=== PATIENT | female | born 1975 | race African-American/Black ===

== ENCOUNTER 2017-01-07 12:47 | Emergency (ER) | payer MEDICAID, OTHER ==
[~2017-01-07] VITALS: Ht 172.7 cm; Wt 54.0 kg
[~2017-01-07 12:47] MED LIST: BIRTH CONTROL
[2017-01-07 13:11] VITALS: BP 127/94
== END 2017-01-07 15:42 | disposition home or self-care (01) ==
LOC: ER 14:37
DX: F41.9 Anxiety disorder, unspecified (principal); I10 Essential (primary) hypertension; F17.200 Nicotine dependence, unspecified, uncomplicated; Z79.899 Other long term (current) drug therapy
CPT/HCPCS: 93005; 99283

== ENCOUNTER 2017-07-12 19:18 | Emergency (ER) | payer MEDICAID, OTHER ==
[~2017-07-12] VITALS: Ht 177.8 cm; Wt 69.0 kg
[2017-07-12 19:34] VITALS: BP 145/93
== END 2017-07-12 22:39 | disposition left against medical advice (07) ==
LOC: ER 20:19
DX: I10 Essential (primary) hypertension (principal); Z53.21 Procedure and treatment not carried out due to patient leaving prior to being seen by health care provider

== ENCOUNTER 2017-07-20 14:52 | Emergency (ER) | payer MEDICAID ==
[~2017-07-20] VITALS: Ht 177.8 cm; Wt 69.0 kg
[2017-07-20] MEDS ORDERED: ANAS1TAB7 PO (15:01)
[2017-07-20] MEDS ORDERED: SODIUM CHLORIDE 0.9% 1,000 ML IV ONE ×2 (19:26→22:30)
[2017-07-20] MEDS ORDERED: LORAZEPAM 1MG TABLET PO ONE (19:30)
[2017-07-20 19:47] LABS: CLARITY URINE CLEAR (CLEAR); COLOR URINE YELLOW (YELLOW); GLUCOSE URINE NEGATIVE (NEGATIVE); KETONES URINE NEGATIVE (NEGATIVE); LEUKOCYTE ESTERASE URINE 2+ (NEGATIVE); NITRITE URINE NEGATIVE (NEGATIVE); OCCULT BLOOD URINE NEGATIVE (NEGATIVE); PROTEIN URINE NEGATIVE (NEGATIVE); SPECIFIC GRAVITY URINE 1.027 (1.005-1.030)
[2017-07-20 19:52] LABS: BASOPHILS % 0.5 % (0.0-2.0); EOSINOPHILS % 1.8 % (0.0-5.0); HEMATOCRIT. 39.7 % (36.0-48.0); HEMOGLOBIN. 13.3 g/dL (12.0-16.0); LYMPHOCYTES % 34.2 % (20.0-50.0); MEAN CORPUSCULAR HEMOGLOBIN 28.3 pg (28.0-32.0); MEAN CORPUSCULAR VOLUME 84.3 fL (81.0-99.0); MEAN PLATELET VOLUME 8.4 fl (7.4-10.4); MONOCYTES % 7.2 % (2.0-8.0); NEUTROPHILS % 56.3 % (40.0-76.0); PLATELET 219 x1000/uL (130-400); RED CELL DISTRIBUTION WIDTH 13.7 % (11.6-14.6)
[2017-07-20 20:04] LABS: CHLORIDE 104 mEq/L (98-107)
[2017-07-20 20:09] LABS: CARBON DIOXIDE 26 mEq/L (21-32)
[2017-07-21 01:08] VITALS: BP 112/85
== END 2017-07-21 01:45 | disposition home or self-care (01) ==
LOC: ER 14:52
DX: F41.9 Anxiety disorder, unspecified (principal); N39.0 Urinary tract infection, site not specified; I10 Essential (primary) hypertension; F17.200 Nicotine dependence, unspecified, uncomplicated
CPT/HCPCS: 36415; 80053; 81001; 81025; 85025; 96360; 96361; 99285; J7030; Z7610

== ENCOUNTER 2018-02-21 01:22 | Emergency (ER) | payer BC, MEDICAID, MEDICARE ==
[~2018-02-21] VITALS: Ht 180.3 cm; Wt 66.0 kg
[~2018-02-21 01:22] MED LIST changes: +ANAS1TAB7 PO
[2018-02-21] MEDS ORDERED: BACITRACIN ZINC OINT UDPKT TOP ONE (04:00)
[2018-02-21] MEDS ORDERED: TETANUS, DIPHTHERIA, PERTUSSIS VAC/PF 0.5ML (>7YR OLD) IM ONE (04:00)
[2018-02-21] MEDS ORDERED: LIDOCAINE HCL 1% 20ML VIAL (Pyxis) INJ MC ONE (04:00)
[2018-02-21] MEDS ORDERED: HYDROCODONE/ACETAMINOPHEN 5/325MG TABLET PO ONE (04:00)
[2018-02-21] MEDS ORDERED: LIDOCAINE HCL 1% 20ML VIAL (Pyxis) INJ INFIL ONE (04:15)
[2018-02-21 06:00] VITALS: BP 115/87
== END 2018-02-21 06:52 | disposition home or self-care (01) ==
LOC: ER 01:22
DX: S01.511A Laceration without foreign body of lip, initial encounter (principal); I10 Essential (primary) hypertension; F17.200 Nicotine dependence, unspecified, uncomplicated; V78.4XXA Person boarding or alighting from bus injured in noncollision transport accident, initial encounter; Y93.89 Activity, other specified; Y92.89 Other specified places as the place of occurrence of the external cause; Y99.8 Other external cause status
CPT/HCPCS: 12011; 90471; 90715; 99283; J3490; X7700; Z7610

== ENCOUNTER 2018-05-02 10:16 | Emergency (ER) | payer SELFPAY ==
[~2018-05-02] VITALS: Ht 180.3 cm; Wt 72.0 kg
[2018-05-02 12:13] VITALS: BP 128/79
[2018-05-02 12:15] LABS: BASOPHILS % 0.8 % (0.0-2.0); EOSINOPHILS % 1.5 % (0.0-5.0); HEMOGLOBIN. 14.1 g/dL (12.0-16.0); LYMPHOCYTES % 36.8 % (20.0-50.0); MEAN CORPUSCULAR HEMOGLOBIN 28.4 pg (28.0-32.0); MEAN CORPUSCULAR VOLUME 84.2 fL (81.0-99.0); MONOCYTES % 8.4 % (2.0-8.0); NEUTROPHILS % 52.5 % (40.0-76.0); PLATELET 236 x1000/uL (130-400); RED BLOOD CELL COUNT 4.98 mill/uL (4.2-5.4); RED CELL DISTRIBUTION WIDTH 14.3 % (11.6-14.6)
[2018-05-02 12:21] LABS: CHLORIDE 107 mEq/L (98-107)
== END 2018-05-02 12:47 | disposition left against medical advice (07) ==
LOC: ER 10:16
DX: R51 Headache (principal); I10 Essential (primary) hypertension; F17.200 Nicotine dependence, unspecified, uncomplicated; Z79.899 Other long term (current) drug therapy; Z91.19 Patient's noncompliance with other medical treatment and regimen
CPT/HCPCS: 36415; 71045; 80053; 81025; 83880; 84484; 85025; 85610; 93005; 99285

== ENCOUNTER 2019-04-05 18:23 | Emergency (ER) | payer MEDICAID ==
[~2019-04-05] VITALS: Ht 180.3 cm; Wt 75.8 kg
[2019-04-05 22:47] VITALS: BP 112/87
== END 2019-04-05 23:09 | disposition left against medical advice (07) ==
LOC: ER 18:23
DX: Z53.21 Procedure and treatment not carried out due to patient leaving prior to being seen by health care provider (principal)

== ENCOUNTER 2019-04-07 10:19 | Emergency (ER) | payer MEDICAID, MEDICARE ==
[~2019-04-07] VITALS: Ht 180.3 cm; Wt 80.0 kg
[2019-04-07] MEDS ORDERED: KETOROLAC 60MG/2ML VIAL IM ONE (11:00)
[2019-04-07 11:07] LABS: CLARITY URINE TURBID (CLEAR); COLOR URINE YELLOW (YELLOW); KETONES URINE NEGATIVE (NEGATIVE); LEUKOCYTE ESTERASE URINE 3+ (NEGATIVE); NITRITE URINE POSITIVE (NEGATIVE); OCCULT BLOOD URINE 2+ (NEGATIVE); PROTEIN URINE 2+ (NEGATIVE); SPECIFIC GRAVITY URINE 1.016 (1.005-1.030)
[2019-04-07 12:09] VITALS: BP 109/75
== END 2019-04-07 12:09 | disposition home or self-care (01) ==
LOC: ER 10:19
DX: N39.0 Urinary tract infection, site not specified (principal)
CPT/HCPCS: 81003; 81025; 87077; 87086; 87186; 96372; 99283; J1885

== ENCOUNTER 2019-05-02 10:51 | Emergency (ER) | payer MEDICARE ==
[~2019-05-02] VITALS: Ht 180.3 cm; Wt 68.0 kg
[2019-05-02] MEDS ORDERED: SODIUM CHLORIDE 0.9% 1,000 ML IV ONE (18:22)
[2019-05-02 18:42] LABS: BASOPHILS % 0.4 % (0.0-2.0); EOSINOPHILS % 1.7 % (0.0-5.0); HEMATOCRIT. 37.6 % (36.0-48.0); HEMOGLOBIN. 13.3 g/dL (12.0-16.0); LYMPHOCYTES % 38.7 % (20.0-50.0); MEAN CORPUSCULAR HEMOGLOBIN 29.5 pg (28.0-32.0); MEAN CORPUSCULAR VOLUME 83.4 fL (81.0-99.0); MEAN PLATELET VOLUME 8.2 fl (7.4-10.4); MONOCYTES % 8.4 % (2.0-8.0); NEUTROPHILS % 50.8 % (40.0-76.0); PLATELET 175 x1000/uL (130-400); RED BLOOD CELL COUNT 4.51 mill/uL (4.2-5.4); RED CELL DISTRIBUTION WIDTH 14.9 % (11.6-14.6)
[2019-05-02 18:48] LABS: CHLORIDE 109 mEq/L (98-107)
[2019-05-02 18:56] LABS: CREATINE KINASE 57 IU/L (26-192)
[2019-05-02 19:47] LABS: CLARITY URINE TURBID (CLEAR); COLOR URINE YELLOW (YELLOW); KETONES URINE TRACE (NEGATIVE); LEUKOCYTE ESTERASE URINE 1+ (NEGATIVE); NITRITE URINE POSITIVE (NEGATIVE); OCCULT BLOOD URINE NEGATIVE (NEGATIVE); PH URINE 6.5 (4.5-8.0); PROTEIN URINE NEGATIVE (NEGATIVE); SPECIFIC GRAVITY URINE 1.024 (1.005-1.030)
[2019-05-02 20:07] LABS: *AMPHETAMINES SCREEN URINE NEGATIVE (NEGATIVE); *BARBITURATES SCREEN URINE NEGATIVE (NEGATIVE); *BENZODIAZEPINES SCREEN URINE NEGATIVE (NEGATIVE); *COCAINE SCREEN URINE NEGATIVE (NEGATIVE); CANNABINOID URINE SCREEN NEGATIVE (NEGATIVE); METHADONE URINE SCREEN NEGATIVE (NEGATIVE); OPIATES URINE SCREEN NEGATIVE (NEGATIVE); PHENCYCLIDINE URINE SCREEN NEGATIVE (NEGATIVE)
[2019-05-02 21:00] VITALS: BP 123/88
== END 2019-05-02 22:37 | disposition home or self-care (01) ==
LOC: ER 10:51
DX: N39.0 Urinary tract infection, site not specified (principal); R03.0 Elevated blood-pressure reading, without diagnosis of hypertension
CPT/HCPCS: 36415; 71045; 80053; 80305; 80307; 80329; 81003; 82550; 83735; 85025; 93005; 99284; J7030

== ENCOUNTER 2020-07-09 23:45 | Emergency (ER) | payer MEDICAID, MEDICARE ==
[~2020-07-09] VITALS: Ht 180.3 cm; Wt 73.0 kg
[2020-07-10] MEDS ORDERED: SODIUM CHLORIDE 0.9% 500 ML IV ONE (00:30)
[2020-07-10 00:52] LABS: BASOPHILS % 0.3 % (0.0-2.0); EOSINOPHILS % 0.9 % (0.0-5.0); HEMATOCRIT. 42.4 % (36.0-48.0); HEMOGLOBIN. 14.3 g/dL (12.0-16.0); LYMPHOCYTES % 26.9 % (20.0-50.0); MEAN CORPUSCULAR HEMOGLOBIN 29.2 pg (28.0-32.0); MEAN CORPUSCULAR VOLUME 86.5 fL (81.0-99.0); MEAN PLATELET VOLUME 8.4 fl (7.4-10.4); MONOCYTES % 6.9 % (2.0-8.0); PLATELET 243 x1000/uL (130-400); RED CELL DISTRIBUTION WIDTH 14.4 % (11.6-14.6)
[2020-07-10 00:55] LABS: CHLORIDE 108 mEq/L (98-107)
[2020-07-10 00:59] LABS: ETHANOL BLOOD 23 mg/dL
[2020-07-10] MEDS ORDERED: LORAZEPAM 0.5MG TABLET PO ONE (01:15)
[2020-07-10 01:30] LABS: HCG SCREEN INDETERMINATE
[2020-07-10 04:58] LABS: CLARITY URINE CLOUDY (CLEAR); COLOR URINE YELLOW (YELLOW); KETONES URINE 1+ (NEGATIVE); LEUKOCYTE ESTERASE URINE TRACE (NEGATIVE); NITRITE URINE NEGATIVE (NEGATIVE); OCCULT BLOOD URINE NEGATIVE (NEGATIVE); PROTEIN URINE NEGATIVE (NEGATIVE); SPECIFIC GRAVITY URINE 1.024 (1.005-1.030)
[2020-07-10 05:09] LABS: *COCAINE SCREEN URINE NEGATIVE (NEGATIVE); METHADONE URINE SCREEN NEGATIVE (NEGATIVE); OPIATES URINE SCREEN NEGATIVE (NEGATIVE); PHENCYCLIDINE URINE SCREEN NEGATIVE (NEGATIVE)
[2020-07-10 05:10] LABS: *AMPHETAMINES SCREEN URINE NEGATIVE (NEGATIVE); *BARBITURATES SCREEN URINE NEGATIVE (NEGATIVE); *BENZODIAZEPINES SCREEN URINE NEGATIVE (NEGATIVE)
[2020-07-10 05:13] LABS: CANNABINOID URINE SCREEN PRESUMTIVE POSITIVE (NEGATIVE)
[2020-07-10 05:49] VITALS: BP 122/80
== END 2020-07-10 05:50 | disposition home or self-care (01) ==
LOC: ER 23:45
DX: F12.188 Cannabis abuse with other cannabis-induced disorder (principal); H53.2 Diplopia; R00.2 Palpitations; R53.1 Weakness; F12.180 Cannabis abuse with cannabis-induced anxiety disorder; I10 Essential (primary) hypertension; F10.10 Alcohol abuse, uncomplicated; Y90.1 Blood alcohol level of 20-39 mg/100 ml; Z32.00 Encounter for pregnancy test, result unknown
CPT/HCPCS: 36415; 71045; 80053; 80305; 80320; 81003; 83880; 84484; 84702; 84703; 85025; 93005; 96360; 99285; J7040; G0480

== ENCOUNTER 2020-10-09 23:20 | Emergency (ER) | payer MEDICAID ==
[~2020-10-09] VITALS: Ht 172.7 cm; Wt 60.0 kg
[2020-10-09 23:25] VITALS: BP 122/64
== END 2020-10-10 00:12 | disposition home or self-care (01) ==
LOC: ER 23:50
DX: F41.9 Anxiety disorder, unspecified (principal); R00.2 Palpitations; I10 Essential (primary) hypertension; Z86.59 Personal history of other mental and behavioral disorders
CPT/HCPCS: 93005; 99283

== ENCOUNTER 2024-06-02 19:21 | Emergency (ER) | payer MEDICAID ==
[~2024-06-02] VITALS: Ht 175.3 cm; Wt 70.0 kg
[2024-06-02 19:35] VITALS: O2SAT 100
[2024-06-02 20:40] LABS: HEMATOCRIT 41.3 % (36.0-48.0); HEMOGLOBIN 13.7 g/dL (12.0-16.0); MEAN CORPUSCULAR HEMOGLOBIN 28.3 pg (28.0-32.0); MEAN CORPUSCULAR HGB CONC 33.2 g/dL (31.0-37.0); MEAN CORPUSCULAR VOLUME 85.1 fL (81.0-99.0); PLATELET 252 x1000/uL (130-400); RED BLOOD CELL COUNT 4.85 mill/uL (4.2-5.4); RED CELL DISTRIBUTION WIDTH 14.5 % (11.6-14.6); WHITE BLOOD COUNT 8.6 x1000/uL (4.5-11.0)
[2024-06-02 20:48] LABS: CHLORIDE 106 mEq/L (98-107); POTASSIUM 3.8 mEq/L (3.5-5.1); SODIUM 136 mEq/L (136-145)
[2024-06-02 20:49] LABS: CALCIUM 9.6 mg/dL (8.7-10.4); CARBON DIOXIDE 24 mEq/L (21-32)
[2024-06-02 20:54] LABS: CREATININE 0.9 mg/dL (0.6-1.0); GLUCOSE 95 mg/dL (70-105); UREA NITROGEN BLOOD 9 mg/dL (9-23)
[2024-06-02 21:12] LABS: HCG SCREEN INDETERMINATE
[2024-06-02 21:39] LABS: ALANINE AMINOTRANSFERASE 14 IU/L (10-49)
[2024-06-02 21:40] LABS: ACETAMINOPHEN < 2 ug/mL (10-30); ALBUMIN 4.7 g/dL (3.2-4.8); ASPARTATE AMINOTRANSFERASE 19 IU/L (<34); BILIRUBIN TOTAL 0.3 mg/dL (0.1-1.0); PROTEIN TOTAL 7.5 g/dL (6.0-8.3)
[2024-06-02 21:47] LABS: BILIRUBIN DIRECT < 0.1 mg/dL (<=3.0); ETHANOL BLOOD < 10 mg/dL (<10)
[2024-06-02 23:43] LABS: *AMPHETAMINES SCREEN URINE NEGATIVE (NEGATIVE); *BARBITURATES SCREEN URINE NEGATIVE (NEGATIVE); *BENZODIAZEPINES SCREEN URINE NEGATIVE (NEGATIVE); *COCAINE SCREEN URINE NEGATIVE (NEGATIVE); CANNABINOID URINE SCREEN NEGATIVE (NEGATIVE); ECSTASY MDMA SCREEN URINE NEGATIVE (NEGATIVE); METHADONE URINE SCREEN NEGATIVE (NEGATIVE); OPIATES URINE SCREEN NEGATIVE (NEGATIVE); PHENCYCLIDINE URINE SCREEN NEGATIVE (NEGATIVE)
[2024-06-03] MEDS: SERTRALINE HCL 25MG TABLET PO SCH (10:30)
[2024-06-03] MEDS: FAMOTIDINE 20MG TABLET PO ONE (19:16)
[2024-06-03] MEDS: OLANZAPINE 5MG TABLET ODT PO ONE (21:05)
[2024-06-04 10:41] LABS: CLARITY URINE CLEAR (CLEAR); COLOR URINE YELLOW (YELLOW); GLUCOSE URINE NEGATIVE (NEGATIVE); KETONES URINE NEGATIVE (NEGATIVE); LEUKOCYTE ESTERASE URINE 1+ (NEGATIVE); NITRITE URINE NEGATIVE (NEGATIVE); OCCULT BLOOD URINE NEGATIVE (NEGATIVE); PROTEIN URINE NEGATIVE (NEGATIVE); SPECIFIC GRAVITY URINE 1.016 (1.005-1.030)
[2024-06-04 10:55] LABS: BACTERIA URINE TRACE; RBC URINE 0-2 /hpf (0-2); SQUAMOUS EPITHELIAL CELL URINE 1+ /lpf (RARE/1+); YEAST URINE NONE SEEN
[2024-06-04] MEDS: MELATONIN 3MG TABLET PO ONE (20:57)
[2024-06-05] MEDS: LOSARTAN 25 MG TABLET PO SCH (14:20)
[2024-06-05] MEDS: MELATONIN 3MG TABLET PO SCH (22:14)
[2024-06-06 06:56] VITALS: TEMP 36.89184
[2024-06-06] MEDS: LOSARTAN 50 MG TABLET PO SCH (09:43)
[2024-06-06] MEDS: CEPHALEXIN 250MG CAPSULE PO SCH (09:43)
[2024-06-06] MEDS: LOSARTAN 25 MG TABLET PO SCH (09:46)
[2024-06-06 11:30] VITALS: BP 125/80; PULSE 85; RESP 18; O2SAT 100
== END 2024-06-06 11:38 | disposition home or self-care (01) ==
LOC: ER 19:21
DX: R45.851 Suicidal ideations (principal); F41.9 Anxiety disorder, unspecified; I10 Essential (primary) hypertension; F20.9 Schizophrenia, unspecified; Z59.00 Homelessness unspecified; Z20.822 Contact with and (suspected) exposure to COVID-19
CPT/HCPCS: 36415; 71045; 76830; 76856; 80048; 80076; 80305; 80307; 80320; 80329; 81003; 84702; 84703; 85027; 87426; 99285; G0480

== ENCOUNTER 2024-07-13 05:19 | Emergency (ER) | payer MEDICAID ==
[~2024-07-13] VITALS: Ht 172.7 cm; Wt 68.0 kg
[2024-07-13 05:36] VITALS: O2SAT 100
[2024-07-13] MEDS: KETOROLAC 30MG/ML VIAL IM STA (06:03)
[2024-07-13] MEDS: LORAZEPAM 1MG TABLET PO ONE (06:10)
[2024-07-13 06:31] LABS: BASOPHILS % 0.7 % (0.0-2.0); CARBON DIOXIDE 24 mEq/L (21-32); CHLORIDE 113 mEq/L (98-107); EOSINOPHILS % 0.9 % (0.0-5.0); HEMATOCRIT. 40.4 % (36.0-48.0); HEMOGLOBIN. 13.4 g/dL (12.0-16.0); LYMPHOCYTES % 26.8 % (20.0-50.0); MEAN CORPUSCULAR HEMOGLOBIN 27.9 pg (28.0-32.0); MEAN CORPUSCULAR HGB CONC 33.1 g/dL (31.0-37.0); MEAN CORPUSCULAR VOLUME 84.2 fL (81.0-99.0); MEAN PLATELET VOLUME 8.8 fl (7.4-10.4); NEUTROPHILS % 64.6 % (40.0-76.0); PLATELET 242 x1000/uL (130-400); POTASSIUM 3.7 mEq/L (3.5-5.1); RED CELL DISTRIBUTION WIDTH 14.9 % (11.6-14.6); SODIUM 142 mEq/L (136-145); WHITE BLOOD COUNT 7.6 x1000/uL (4.5-11.0)
[2024-07-13 06:32] LABS: CALCIUM 9.4 mg/dL (8.7-10.4)
[2024-07-13 06:37] LABS: CREATININE 0.7 mg/dL (0.6-1.0); GLUCOSE 103 mg/dL (70-105); UREA NITROGEN BLOOD 13 mg/dL (9-23)
[2024-07-13 06:39] LABS: ACETAMINOPHEN < 2 ug/mL (10-30)
[2024-07-13 07:01] LABS: ETHANOL BLOOD < 10 mg/dL (<10)
[2024-07-13 07:17] LABS: *AMPHETAMINES SCREEN URINE NEGATIVE (NEGATIVE); *BENZODIAZEPINES SCREEN URINE NEGATIVE (NEGATIVE)
[2024-07-13 07:18] LABS: *BARBITURATES SCREEN URINE NEGATIVE (NEGATIVE); *COCAINE SCREEN URINE NEGATIVE (NEGATIVE); CANNABINOID URINE SCREEN NEGATIVE (NEGATIVE); ECSTASY MDMA SCREEN URINE NEGATIVE (NEGATIVE); METHADONE URINE SCREEN NEGATIVE (NEGATIVE); OPIATES URINE SCREEN NEGATIVE (NEGATIVE); PHENCYCLIDINE URINE SCREEN NEGATIVE (NEGATIVE)
[2024-07-13 10:15] LABS: HCG SCREEN NEGATIVE
[2024-07-13] MEDS: SERTRALINE HCL 50MG TABLET PO SCH (11:45)
[2024-07-13] MEDS: OLANZAPINE 5MG TABLET PO SCH (11:45)
[2024-07-13 16:30] LABS: CLARITY URINE CLOUDY (CLEAR); COLOR URINE YELLOW (YELLOW); GLUCOSE URINE NEGATIVE (NEGATIVE); KETONES URINE NEGATIVE (NEGATIVE); LEUKOCYTE ESTERASE URINE 2+ (NEGATIVE); NITRITE URINE NEGATIVE (NEGATIVE); OCCULT BLOOD URINE NEGATIVE (NEGATIVE); PH URINE 6.5 (4.5-8.0); PROTEIN URINE TRACE (NEGATIVE); SPECIFIC GRAVITY URINE 1.021 (1.005-1.030)
[2024-07-13 18:13] LABS: BACTERIA URINE 4+; SQUAMOUS EPITHELIAL CELL URINE 2+ /lpf (RARE/1+)
[2024-07-13 18:14] LABS: RBC URINE 0-2 /hpf (0-2)
[2024-07-13 20:44] VITALS: BP 128/76; PULSE 83; RESP 20; TEMP 36.78072; O2SAT 99
== END 2024-07-13 20:56 ==
LOC: ER 05:19
DX: R45.851 Suicidal ideations (principal); F32.9 Major depressive disorder, single episode, unspecified; I10 Essential (primary) hypertension; F20.9 Schizophrenia, unspecified; Z20.822 Contact with and (suspected) exposure to COVID-19
CPT/HCPCS: 36415; 80048; 80305; 80307; 80320; 80329; 81003; 84703; 85025; 87426; 99285; G0480